=== PATIENT | male | born 1980 | race Caucasian/White ===

== ENCOUNTER 2017-06-07 09:04 | Emergency (ER) | payer OTHER ==
[~2017-06-07] VITALS: Ht 157.5 cm; Wt 80.0 kg
[2017-06-07 09:35] VITALS: BP 139/86
== END 2017-06-07 11:38 | disposition home or self-care (01) ==
LOC: ER 09:27
DX: F41.0 Panic disorder [episodic paroxysmal anxiety] (principal)
CPT/HCPCS: 99284